=== PATIENT | female | born 1945 | race African-American/Black ===

== ENCOUNTER 2016-12-06 12:08 | Emergency (ER) | payer MEDICARE, BC ==
[~2016-12-06] VITALS: Ht 170.2 cm; Wt 89.0 kg
[2016-12-06 12:10] VITALS: BP 164/92; PULSE 69; RESP 16; TEMP 97.8; O2SAT 99
[2016-12-06] MEDS ORDERED: diphenhydrAMINE HCL 25 MG CAP PO ONE (12:30)
[2016-12-06] MEDS ORDERED: predniSONE 20 MG TAB PO ONE (12:30)
[2016-12-06] MEDS ORDERED: RANI300T PO (12:31)
[2016-12-06] MEDS ORDERED: LOVA10TA PO (12:31)
[2016-12-06] MEDS ORDERED: ASPI1TAB69 PO (12:31)
[2016-12-06] MEDS ORDERED: METF500T4 PO (12:31)
[2016-12-06] MEDS ORDERED: TRIBTAB9 PO (12:31)
[2016-12-06] MEDS ORDERED: PLAV75TA29 PO (12:31)
[2016-12-06] MEDS ORDERED: BENA25TA3 PO (12:36)
[2016-12-06] MEDS ORDERED: PROT40TA PO (12:36)
[2016-12-06] MEDS ORDERED: PRED-503 PO (12:36)
--- NOTE | 2016-12-06 12:36 | PD ---
HPI Chief Complaint: Allergic/Adverse Reaction Time Seen by Provider: 12:18 Travel History International Travel<30 days: No Contact w/Intl Traveler<30days: No Traveled to known affect area: No History of Present Illness HPI The patient is a 70-year-old Shanna female who presents to the emergency department for a possible allergic reaction. The patient states she took ranitidine earlier today and shortly after taking the medication developed some facial itching. Patient states the itching was located within the nose, and the perioral area, the upper extremities bilaterally, and the neck. The patient also complained of mild difficulty swallowing and a change in voice, denied any shortness of breath or wheezing. The patient denied any subsequent chest pain, nausea, vomiting, or visible rash. 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 She denies any acute focal deficits. Symptoms are moderate, exacerbated after taken ranitidine, and mostly self alleviating. PFSH Past Medical History Hx Anticoagulant Therapy: Yes High Cholesterol: Yes Cerebrovascular Accident: Yes Diabetes: Yes Patient Takes Glucophage: Yes GERD: Yes Hypertension: Yes Tetanus Vaccination: > 5 Years Influenza Vaccination: No ?: Not Past Surgical History Other Surgery: Yes (LEFT BREAST LUMP REMOVAL/TUMOR REMOVAL) Social History Alcohol Use: No Tobacco Use: No Substance Use: No Allergies-Medications (Allergen,Severity, Reaction): Coded Allergies: UNOBTAINABLE (Unverified , 12/06/16) PT NOT SURE WHICH MEDS SHE IS ALLERGIC TO. "SOMETHING I'M TAKING" Review of Systems Except as stated in HPI: all other systems reviewed are Neg HENT: Positive: Sore Throat, No: Headaches Cardiovascular: No: Chest Pain or Discomfort Respiratory: No: Shortness of Breath, Wheezing Gastrointestinal: No: Nausea, Vomiting Skin: Positive Itching, No Rash Neurologic: No: Focal Abnormalities Physical Exam Narrative GENERAL: Awake, alert, nontoxic-appearing 70-year-old female who appears her stated age and is in no acute respiratory distress. SKIN: Focused skin assessment warm/dry. HEAD: Atraumatic. Normocephalic. EYES: No injection or drainage. EOMs are intact. ENT: No nasal bleeding or discharge. Mucous membranes pink and moist. No visible angioedema of the tongue or lips. No visible edema the uvula. NECK: Trachea midline. No JVD. CARDIOVASCULAR: Regular rate and rhythm. No murmur appreciated. RESPIRATORY: No accessory muscle use. Clear to auscultation. Breath sounds equal bilaterally. No wheezing noted. MUSCULOSKELETAL: No obvious deformities. No clubbing. No cyanosis. No edema. NEUROLOGICAL: Awake and alert. No obvious cranial nerve deficits. Motor grossly within normal limits. Normal speech. Sensation is symmetric to the arms , legs, and face bilaterally. No acute focal deficits noted. Slightly slow in speech at times, she attributes it to previous CVA. PSYCHIATRIC: Appropriate mood and affect; insight and judgment normal. Data Data Last Documented VS Vital Signs Date Time Temp Pulse Resp B/P Pulse Ox O2 Delivery O2 Flow Rate FiO2 12/06/16 12:10 97.8 69 16 164/92 99 Orders Prednisone (Deltasone) (12/06/16 12:30) Diphenhydramine (Benadryl) (12/06/16 12:30) [facility] Medical Decision Making Medical Screen Exam Complete: Yes Emergency Medical Condition: Yes Medical Record Reviewed: Yes Differential Diagnosis Differential diagnoses includes allergic reaction, anaphylaxis, medication side effect. Narrative Course The patient states her allergic reaction symptoms started after taken ranitidine. I do discussion with the patient stating that. Silvadene is usually not associated with allergic reactions, or, patient states that the only medication that she took this morning and must be the cause of her symptoms. The patient states she had oatmeal and blueberries to eat as well, however, she is never had reactions like that in the past. 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 She is advised to follow-up with her primary physician return if symptoms worsen or progress. Diagnosis Primary Impression: Allergic reaction Qualified Code: T78.40XA - Allergic reaction, initial encounter Patient Instructions: General Instructions Additional Instructions: Medications as directed. Follow-up with her primary physician. Return if symptoms worsen or progress. Med/Other Pt SpecificInfo: Prescription(s) given, Med Stopped (stop rantidine) Scripts Pantoprazole (Protonix)40 Mg Tab40 Mg PO DAILY #30 TAB Ref 0 Prov:Frandy Soni MD 12/06/16 Diphenhydramine (Benadryl Allergy)25 Mg Tab25 Mg PO Q6H PRN (ALLERGIES) #20 TAB Ref 0 Prov:Frandy Soni MD 12/06/16 Prednisone (Deltasone)20 Mg Tab40 Mg PO DAILY 4 Days Ref 0 Prov:Frandy Soni MD 12/06/16 Disposition: 01 DISCHARGE HOME Condition: Stable Frandy Soni MD December 06, 2016 12:36
== END 2016-12-06 12:55 | disposition home or self-care (01) ==
LOC: PHED 12:08
DX: T47.0X5A Adverse effect of histamine H2-receptor blockers, initial encounter (principal); K21.9 Gastro-esophageal reflux disease without esophagitis; I10 Essential (primary) hypertension
CPT/HCPCS: 99283; J7512